=== PATIENT | male | born 1995 | race Two or more races ===

== ENCOUNTER 2023-03-06 07:38 | Day surgery (SDC) | payer MEDICAID, SELFPAY ==
[2023-03-06] VITALS (11 sets, daily range): BP systolic 102–132; BP diastolic 48–91; PULSE 69–89; RESP 16–18; TEMP 36.4–37.1; O2SAT 96–99; BMI 29.0
--- NOTE | ~2023-03-06 | CT_ITS ---
EXAMINATION: CT ABDOMEN AND PELVIS WITH CONTRAST CLINICAL INFORMATION: Right lower quadrant pain. COMPARISON: None available. TECHNIQUE: Multidetector volumetric images were obtained from the superior aspect of the liver through the pubic symphysis following administration 85 mL of Omnipaque 350 intravenous contrast. Sagittal and coronal reformatted images were obtained on the technologist's workstation. Oral contrast: No This CT examination was performed using dose optimization techniques as appropriate, variously including the following: *Automated exposure control *Adjustment of mA and/or kV according to patient size (this includes techniques or standardized protocols for targeted exams where dose is matched to indication/reason for exam; i.e. extremities or head) *Use of iterative reconstruction technique DLP: 596 mGy-cm FINDINGS: LUNG BASES: Normal. No pulmonary consolidation or pleural effusion. LIVER: The liver has normal size, shape, and attenuation. No evidence of liver mass. GALLBLADDER AND BILIARY TREE: Gallbladder is without radiopaque stones, wall thickening or pericholecystic fluid. No dilated bile ducts. PANCREAS: Normal. No edema, pancreatic ductal dilatation or mass. SPLEEN: Normal. ADRENAL GLANDS: Normal. KIDNEYS AND URETERS: Kidneys are normal in size and enhance symmetrically. No renal mass. There is excretion of iodinated contrast into the nondilated collecting systems. No renal stones are convincingly seen, although small stones could be obscured by the excreted contrast. It is difficult to exclude a 0.3 cm calyceal stone of the posterior upper pole of the left kidney. BLADDER: Normal. No calculi or wall thickening. BOWEL AND PERITONEUM: No dilated bowel loops. Small and large bowel are unremarkable. The appendix is abnormal. It measures up to 8-9 mm diameter, has thickened wall, and mild periappendiceal fat stranding is present. Findings are consistent with acute appendicitis. No evidence of appendiceal rupture. No abscess. ABDOMINAL WALL: Unremarkable. VASCULATURE: Normal. LYMPH NODES: No pathologic sized lymph nodes in the abdomen or pelvis. No inguinal lymphadenopathy. PELVIC VISCERA: Prostate gland is normal. No pelvic mass or pelvic free fluid. MUSCULOSKELETAL: Unremarkable. CT/CT abdomen pelvis w IV con IMPRESSION: There is acute appendicitis. No appendiceal rupture. No abscess. The critical test result was discussed with Diana Stein at 10:27 am on 03/06/2023 and it was ascertained that the content and the importance of the findings was understood at the time of the direct communication.
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
[2023-03-06 08:27] LABS: MANUAL DIFF FLAG NO
[2023-03-06 08:34] LABS: Basophils Absolute Auto 0.1 X10*3/uL (0.0-0.2); Basophils Percent Auto 0.6 % (0-2); Eosinophils Absolute Auto 0.1 X10*3/uL (0.0-0.4); Eosinophils Percent Auto 0.9 % (0-4); Hematocrit 49.4 % (42.0-52.0); Hemoglobin 16.3 g/dl (14.0-18.0); Imm Gran Abs Auto 0.04 X10*3/uL (0.00-0.03); Imm Gran Pct Auto 0.3 % (0.0-0.4); Lymphocytes Absolute Auto 1.4 X10*3/uL (1.2-4.9); Lymphocytes Percent Auto 11.6 % (20-40); Mean Corpuscular Hemoglobin 29.4 pg (27.0-33.0); Mean Platelet Volume 8.8 fL (9.4-12.4); Monocytes Absolute Auto 0.8 X10*3/uL (0.1-1.2); Monocytes Percent Auto 6.5 % (2-11); Neutrophils Absolute Auto 9.3 x10*3/uL (2.0-8.3); Neutrophils Percent Auto 80.1 % (45-73); Platelet Count 261 X10*3/uL (160-400); Red Blood Count 5.55 X10*6/uL (4.60-5.80); Red Cell Distribution Width 13.5 % (11.0-16.0); White Blood Count 11.6 X10*3/uL (4.8-10.8)
[2023-03-06 08:53] LABS: Alanine Aminotransferase 26 U/L (0-40); Albumin Level 4.4 g/dL (3.5-5.0); Alkaline Phosphatase 47 U/L (39-117); Anion Gap 10 (12-20); Aspartate Amino Transferase 19 U/L (5-37); Bilirubin Direct 0.3 mg/dL (0.0-0.5); Bilirubin Total 1.3 mg/dL (0.0-1.0); Blood Urea Nitrogen 10 mg/dL (9-16); Calcium 9.5 mg/dL (8.4-10.2); Carbon Dioxide 28 mmol/L (22-29); Chloride 105 mmol/L (96-108); Creatinine Clr Calc Pharmacy 126.8; Estimated Glomerular Filt Rate > 60; Glucose Random 88 mg/dL (60-115); Magnesium 2.1 mg/dL (1.6-2.6); Potassium 4.3 mmol/L (3.3-5.1); Sodium 139 mmol/L (135-145); Total Protein 7.4 g/dL (6.5-8.0)
[2023-03-06 09:13] LABS: Appearance Urine Clear; Color Urine Yellow; Glucose Urine UA Negative (Negative); Leukocyte Esterase Urine Negative (Negative); Nitrite Urine Negative (Negative); PH 6.5 (5.0-9.0); Specific Gravity - Urine 1.025 (1.005-1.025); Urine Blood Negative (Negative); Urine Ketones Negative (Negative); Urine Protein Negative (Neg-Trace)
[2023-03-06] MEDS: ondansetron HCL 4 MG/2 ML VIAL IVPUSH (09:23)
[2023-03-06] MEDS: Morphine Sulfate 4 MG/ML CARTRIDGE IVPUSH (09:23)
[2023-03-06] MEDS: 0.9 % Sodium Chloride 1,000 ML 999 ML IVCONT (09:23)
[2023-03-06] MEDS: iohexoL 350 MG/ML 100 ML INFUS..BTL IV (09:28)
--- NOTE | 2023-03-06 10:31 | PC.NURSE ---
pt seen by surgeon, dr. zepeda. pt aware of plan of care for surgery later today or tomorrow.
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
--- NOTE | 2023-03-06 10:51 | PHA.MEDREC ---
Pharmacy Consult ? Medication Reconciliation Pharmacy has completed the medication reconciliation. Spoke to patient.
--- NOTE | 2023-03-06 12:02 | W.PM.OPN ---
Operative Note Operative Note Date of Service: 03/06/23 Narrative: Preop diagnosis: [Acute appendicitis] Postop diagnosis: [same] Procedure: [Laparoscopic appendectomy] Surgeon: Eric Gottlieb MD Assist: [Tiffany Woodson PA-C] Anesthesia: [GET, Marcaine, 0.5% with epi] Estimated blood loss: [3cc] Specimen: [Acutely inflamed appendix] Intraoperative findings: [Non-perforated, dilated mid to distal appendix; normal proximal appendix to cecal base consistent with appendicitis grossly. No obvious suppuration, grossly.] Indications: [The patient is a 27-year-old gentleman who denies significant past medical history. He reports that after dinner last night, he started feeling often had vague abdominal complaints that eventually localized. He presented to the emergency room with right lower quadrant tenderness and a leukocytosis and a CT that confirmed acute appendicitis. Options including medical management versus operative resection, specifically a laparoscopic appendectomy, possibly open was reviewed. The postoperative restrictions were also reviewed with the patient, and at his request, his significant other, Yara. The inherent risks of bleeding, infection, conversion to open surgery, the possibility of encountering unexpected pathology that could change the operative plan acutely or in the future, and the risks of bleeding or infectious complications that could require another procedure were discussed and the patient's questions were answered. He declined interpretive services and apparently understood his options and wanted to proceed with surgery. The patient requested permission to contact his aeronautical engineering officer to have his left ankle bracelet removed.] Procedure: [The patient was identified in the preoperative holding area and again in the operating room. An appropriate time-out was performed. The patient had voided bladder conference center manager, received subcu heparin and antibiotics per protocol. Sequential compression stockings were placed. The patient was induced in general endotracheal anesthesia administered with excellent effect. The abdomen was widely prepped and draped in the usual manner for surgery. Preemptive local was used at all trocar insertion sites. The abdomen was accessed using a Veress needle. A transverse supraumbilical incision was made, the Veress needle inserted without incident, an appropriate drop test performed and a pneumoperitoneum of 15 mmHg was obtained using carbon dioxide. Next, the Veress needle was withdrawn and the abdomen was accessed through the incision with a 30 degree/5 mm laparoscoped over Optiview trocar technique without incident. In examining the bowel & mesentary deep to the Veress needle, no evidence of injury was present. The remaining trocars were placed under direct laparoscopic vision with preemptive analgesia. The patient was then positioned in Trendelenburg, banked left. The appendix was identified and tracked down to the cecum. A window was made in the mesoappendix and the mesoappendix carefully dissected using the 5 mm LigaSure [place] tip. An Endo-ALEXIS stapler, 30mm purple load, was placed across the appendiceal base on the cecum the and fired with good hemostasis and closure. The specimen was placed in an Endo-Catch bag and delivered through the 12 mm port in the left lower quadrant. Operative field was irrigated and inspected for hemostasis which was good. Patient was returned to neutral position, the abdomen deflated and the trocars removed. 12 mm fascia was closed with 0- Polysorb and skin closed with 4-0 Monocryl subcuticular sutures. The abdomen was washed and dried, Mastisol and Steri-Strips applied followed by Band-Aids. Patient tolerated the procedure well and was sent to PACU in stable condition. All sponge instrument counts were correct x2. Plan for discharge home. ]
[2023-03-06] MEDS: Piperacillin Sodium/Tazobactam 3.375 GM in 0.9 % Sodium Chloride 50 ML IV (12:22)
[2023-03-06] MEDS: HYDROmorphone HCl 0.5 MG/0.5 ML SYRINGE 0.25 MG IVPUSH (12:22)
[2023-03-06] MEDS: Lactated Ringers 1,000 ML 100 ML IVCONT (12:23)
--- NOTE | 2023-03-06 12:53 | HO.ANESPROP2 ---
Documented by User: Aaliyah Rogers MD 03/06/23 13:32 [facility] Family History Family history of problems with anesthesia: No Surgical History Surgical History (Updated 03/06/23 @ 13:17 by Elsa Rodgers) No pertinent past surgical history History of Problems with Anesthesia: No Social History Social History Alcohol intake: never Smoked in Last 30 Days: No Use of substances other than those prescribed or required for medical reasons: No Advance Directives: No Advance Directives Information Provided: No Meds Allergies Allergy/AdvReac Type Severity Reaction Status Date / Time No Known Allergies Allergy Verified 03/06/23 13:18 Home Medications Medication Instructions Recorded Confirmed Last Taken Type No Known Home Meds 03/06/23 03/06/23 Unknown History Exam Airway Mallampati Class: II (permanent top bridge in front) TM Dist: >3cm Neck ROM: Full Heart: rrr Lungs: cta Assessment and Plan Assessment Anesthesia Assessment: Anesthesia Plan Discussed and Chart Reviewed Final Anesthetic Review Family History of Problems with Anesthesia: No History of Problems with Anesthesia: No NPO: Yes ASA Class: I Final Preanesthetic Review: No Changes in Pt Med Stat, Meds/Allgs Chart Reviewed and Consent Obtained/Reviewed Patient Risk: Intermediate Procedure Risk: Intermediate Anesthetic Plan Anesthetic Plan: GA Disposition: Standard PACU Documented by User: Elsa Millard MD [facility] Active Problems Active Problems: All Active Problems (Updated 03/06/23 @ 10:46 by CHAU Mcfarland) Acute appendicitis (Acute) Surgical History Surgical History (Updated 03/06/23 @ 13:17 by Elsa Rodgers) No pertinent past surgical history Social History Social History Alcohol intake: never Smoked in Last 30 Days: No Use of substances other than those prescribed or required for medical reasons: No Advance Directives: No Advance Directives Information Provided: No Meds Allergies Allergy/AdvReac Type Severity Reaction Status Date / Time No Known Allergies Allergy Verified 03/06/23 13:18 Active Medications: Current Medications Docusate Sodium (Docusate Sodium 100 Mg Capsule) 200 mg PO BID LOUIE Hydromorphone HCl (Hydromorphone Hcl 0.5 Mg/0.5 Ml Syringe) 0.25 mg IVPUSH Q2H PRN; Protocol PRN Reason: Pain, Moderate(Pain Scale 4-6) Last Admin: 03/06/23 12:22 Dose: 0.25 mg Lactated Ringer's (Lr) 1,000 mls @ 100 mls/hr IVCONT .Q10H LOUIE Last Admin: 03/06/23 12:23 Dose: 100 mls/hr Ibuprofen (Ibuprofen 400 Mg Tablet) 400 mg PO Q6H PRN PRN Reason: Pain, Mild (Pain Scale 1-3) Ondansetron HCl (Ondansetron Hcl 4 Mg/2 Ml Vial) 4 mg IVPUSH Q6H PRN PRN Reason: Nausea and Vomiting Pharmacy Consult (Consult Rx Perform Med Rec) 1 each MISCELLANE ONCE PRN PRN Reason: Consult order Home Medications Medication Instructions Recorded Confirmed Last Taken Type No Known Home Meds 03/06/23 03/06/23 Unknown History Exam Exam Date and Time: March 06, 2023 1253 Height,Weight and Vital Signs: Height 5 ft 7 in Weight 83.915 kg Last Vital Signs Temp 97.6 F 03/06/23 12:03 Pulse 77 03/06/23 12:03 Resp 16 03/06/23 12:03 BP 118/60 03/06/23 12:03 Pulse Ox 98 03/06/23 12:03 O2 Del Method Room Air 03/06/23 12:03 Pertinent Lab Results Pertinent Lab Results: Laboratory Tests 03/06/23 03/06/23 03/06/23 08:23 08:23 09:06 WBC 11.6 H RBC 5.55 Hgb 16.3 Hct 49.4 MCV 89.0 MCH 29.4 MCHC 33.0 RDW 13.5 Plt Count 261 MPV 8.8 L Immature Gran % (Auto) 0.3 Neut % (Auto) 80.1 H Lymph % (Auto) 11.6 L [place] % (Auto) 6.5 Eos % (Auto) 0.9 Baso % (Auto) 0.6 Lymph # (Auto) 1.4 [place] # (Auto) 0.8 Eos # (Auto) 0.1 Baso # (Auto) 0.1 Abs Immat Gran (auto) 0.04 H Absolute Neuts (auto) 9.3 H Absolute Nucleated RBC 0.000 Nucleated RBC % (auto) 0.0 Sodium 139 Potassium 4.3 Chloride 105 Carbon Dioxide 28 Anion Gap 10 L BUN 10 Creatinine 0.89 Estim Creat Clear Calc 126.8 Estimated GFR > 60 Random Glucose 88 Calcium 9.5 Magnesium 2.1 Total Bilirubin 1.3 H Direct Bilirubin 0.3 AST 19 ALT 26 Alkaline Phosphatase 47 Total Protein 7.4 Albumin 4.4 Urine Color Yellow Urine Appearance Clear Urine pH 6.5 Ur Specific [place] 1.025 Urine Protein Negative Urine Glucose (UA) Negative Urine Ketones Negative Urine Blood Negative Urine Nitrite Negative Ur Leukocyte Esterase Negative
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
--- NOTE | 2023-03-06 15:30 | PM.DS ---
DS: Providers Provider Date of Service: 03/06/23 Primary care physician: Unknown Physician Consults: 03/06/23 10:43 Consult to General Surgery Stat Consulting Provider: [facility] General Surgeons Reason for consultation: appendicitis DS: Diagnosis Discharge Diagnosis (1) Acute appendicitis: Status: Acute DS: Summary Hospital Course Hospital Course: See H&P for full details. Briefly, this 27-year-old gentleman presented with right lower quadrant pain, leukocytosis and a CT that confirmed appendicitis. He underwent an uneventful laparoscopic appendectomy and was discharged home in improved condition. Time Spent with Patient Time attestation: Total time managing care of this patient today ____ minutes. Discharge coordination time: Less than 30 minutes Quality: Safe Use of Opioids Does Pt have an Active Cancer Diagnosis on the Problem List?: No Quality: Stroke Does the patient have a stroke diagnosis?: No Physical Exam Vital Signs: Vital Signs: Last Vital Signs Temp 98.3 F 03/06/23 13:18 Pulse 77 03/06/23 13:18 Resp 16 03/06/23 13:18 BP 129/76 03/06/23 13:18 Pulse Ox 97 03/06/23 13:18 O2 Del Method Room Air 03/06/23 13:18 BMI result Body Mass Index 29.0 DS: Data Data Completed and Pending Pending studies at discharge: Pending at discharge 03/06/23 14:46 Surgical [PTH] Routine Labs on day of discharge: Laboratory Results - last 24 hr 03/06/23 03/06/23 03/06/23 08:23 08:23 09:06 WBC 11.6 H RBC 5.55 Hgb 16.3 Hct 49.4 MCV 89.0 MCH 29.4 MCHC 33.0 RDW 13.5 Plt Count 261 MPV 8.8 L Immature Gran % (Auto) 0.3 Neut % (Auto) 80.1 H Lymph % (Auto) 11.6 L Schley % (Auto) 6.5 Eos % (Auto) 0.9 Baso % (Auto) 0.6 Lymph # (Auto) 1.4 Schley # (Auto) 0.8 Eos # (Auto) 0.1 Baso # (Auto) 0.1 Abs Immat Gran (auto) 0.04 H Absolute Neuts (auto) 9.3 H Absolute Nucleated RBC 0.000 Nucleated RBC % (auto) 0.0 Sodium 139 Potassium 4.3 Chloride 105 Carbon Dioxide 28 Anion Gap 10 L BUN 10 Creatinine 0.89 Estim Creat Clear Calc 126.8 Estimated GFR > 60 Random Glucose 88 Calcium 9.5 Magnesium 2.1 Total Bilirubin 1.3 H Direct Bilirubin 0.3 AST 19 ALT 26 Alkaline Phosphatase 47 Total Protein 7.4 Albumin 4.4 Urine Color Yellow Urine Appearance Clear Urine pH 6.5 Ur Specific [place] 1.025 Urine Protein Negative Urine Glucose (UA) Negative Urine Ketones Negative Urine Blood Negative Urine Nitrite Negative Ur Leukocyte Esterase Negative Discharge Plan Discharge Clinical Impression: Acute appendicitis Patient Disposition: Admitted As Inpatient Additional Instructions: You had a laparoscopic appendectomy performed by Dr. Gottlieb. It is normal to feel some minor abdominal discomfort due to the gas from the operation, however if you develop severe pain in your abdomen or chest, fevers over 100F, vomiting and are unable to keep liquids down, you should contact Dr. Gottlieb or report to the nearest emergency department. If your incisions become red, swollen and tender, draining pus or have problems, please contact Dr. Gottlieb report to the nearest emergency department. If you have bandages on your incisions, leave them in place for 48 hours, then remove them. You can shower but not soak in a tub after removing the bandages. If there are paper tapes known as butterflies/Steri-Strips, leave them fall off on their own in 1-2 weeks. You do not need to put another bandage on your incisions unless your clothing rubs and irritates your incisions. You can shower after you removed your bandages in 48 hours, but do not soak in a tub, go in a pool, or go swimming in a [place]na[place] pond or ocean. Please let the paper tapes to dry after getting them wet. You do not need to replace a bandage on lesser clothing irritates the incision. You may find that pants with an elastic waist like gym cloths or suspenders are more comfortable than pants requiring a belt until your incisions completely heal. Because of the operation, you should not lift more than 20 lb for the next 4 weeks. Any strenuous activity such as lifting more than 20 lb, digging, yoga, any athletic activity, like running, soccer, or other strenuous activity, lifting heavy bags/groceries, swimming, martial arts, or other strenuous athletic activities can cause hernias. If you have any questions regarding a specific activity, please ask Dr. Gottlieb. Avoiding strenuous activities will minimize the risk of incisional hernias. At your 1 week post-op office visit, Dr. Gottlieb will discuss returning to work on light duty with you. Since you can perform light duty, you are not disabled, but your employer may not allow you to return until you have no restrictions; it is up to you to discuss this issue, as we cannot disclose personal information. Please bring any paperwork to that follow-up appointment from your employer. Please note that you are not disabled and need to discuss your work restrictions for medical reasons with your employer. If you do not have a follow-up post-op visit, call [phone] to schedule one, or call with questions. If you were prescribed an antibiotic, continue taking the medication as prescribed. The anesthesia from the operation and pain medicine will cause constipation. You can purchase cmwe-[id number] stool softener known as Colace/docusate, 100 mg and take 2 tablets in the morning with breakfast and 2 tablets in the evening after dinner to minimize this problem. Even if you are not taking narcotics, the anesthesia can cause constipation. Unless you have a medical reason, you should take [id number] Tylenol/acetaminophen, 2 tablets with mcve-fpo-clhzyey ibuprofen, 2 tablets, every 6 hours to help with pain. Add the narcotic pain medicine if you are still having pain. Ice packs are also allowed to minimize pain and swelling. You should eat a high-protein, high-fiber, low-fat diet to optimize healing. Please resume any preoperative medications unless otherwise directed by Dr. Gottlieb. Please contact your primary care provider for a follow-up appointment in 2 weeks. Interventions: Admission Worksheet (ED) Last Done: 03/06/23 13:18 Discharge Date/Time: 03/06/23 15:23
== END 2023-03-06 11:45 | disposition home or self-care (01) ==
LOC: HO.ED 13:37 → HO.SSS 15:47
PROVIDERS: Physician Assistant; Emergency Provider Emergency Medicine; Visit Provider Surgery
PROC: 0DTJ4ZZ Resection of Appendix, Percutaneous Endoscopic Approach (ICD-10-PCS; CPT 44970; principal; 2023-03-06 14:10)
DX: K35.80 Unspecified acute appendicitis (principal); D72.829 Elevated white blood cell count, unspecified; Z98.890 Other specified postprocedural states; Z87.891 Personal history of nicotine dependence
CPT/HCPCS: 44970; 36415; 74177; 80048; 80076; 81003; 83735; 85025; 88304; 96361; 96365; 96375; 99285; J0330; J1100; J1170; J1885; J2250; J2270; J2405; J2543; J3010; Q9967

== ENCOUNTER 2023-03-29 10:04 | Emergency (ER) | payer MEDICAID, SELFPAY ==
[2023-03-29 10:07] VITALS: BP 131/83; PULSE 95; RESP 18; TEMP 36.8; O2SAT 95; BMI 28.2
--- NOTE | 2023-03-29 11:47 | ED_ITS ---
HPI - General Adult General Chief complaint: General Medical Stated complaint: infection Time Seen by Provider: 03/29/23 11:21 History of Present Illness HPI narrative: patient is 2 weeks post appendectomy done here in [place], he complains for several days he has had some drainage and some wound dehiscence at 1 of th surgial laparoscopy incisions He denies any fever or chills he denies any nausea or vomiting no difficulty eating no other abdominal pain Related Data Previous Rx's Medication Instructions Recorded cephalexin 500 mg tablet 500 mg PO QID 7 days #28 tabs 03/29/23 Allergies Allergy/AdvReac Type Severity Reaction Status Date / Time No Known Allergies Allergy Verified 03/06/23 13:18 [facility], [facility] Past Medical History Source: nursing notes reviewed Surgical History (Updated 03/06/23 @ 13:49 by Elsa Rodgers) History of neck surgery No pertinent past surgical history Social History Social History Alcohol intake: never Patient Tobacco Use Status: Former Tobacco user Tobacco use type: Cigarette Advance Directives: No Advance Directives Information Provided: Yes Physical Exam ED Vital Signs: Vital Signs - 24 hr 03/29/23 10:07 Temperature 98.3 F Pulse Rate 95 Respiratory Rate 18 Blood Pressure 131/83 Pulse Oximetry 95 Oxygen Delivery Method Room Air BMI result Body Mass Index 28.2 general appearance is no acute distress Neck is supple Respiratory no distress Abdomen on the left side of the abdomen there is a 2 cm incision site with mild dehiscence and an internal suture is protruding there is no fluctuance there is some scant watery discharge, there is no surrounding erythema No other abdominal tenderness except locally around this incision site Extremities full range of motion x4 Skin no other rash Course Course Course Narrative: case was discussed via text with surgery on-call Dr. cherry he advised this is likely local irritation from the suture and to remove the suture and follow w this week in the office I did start Keflex , the protruding suture was removed He will follow in the office next week and is advised to return if redness pain or swelling increase or if he develops any fever Medications Administered Discontinued Medications Generic Name Dose Route Start Last Admin Trade Name Freq PRN Reason Stop Dose Admin Cephalexin HCl 500 mg 03/29/23 12:06 03/29/23 12:17 Cephalexin 500 Mg Capsule PO 03/29/23 12:07 500 mg ONCE ONE Administration Discharge Plan Discharge Clinical Impression: Cellulitis Patient Disposition: Home, Self-Care Additional Instructions: I spoke with surgery Who advised this is likely an irritation or mild infection at the suture site I did remove the suture and started Keflex antibiotic Call the surgeon's office tomorrow to be seen early next week Return to the emergency room any time if you develop worse pain and swelling, spreading redness, increased discharge fever nausea vomiting, any worse condition or any concerns Prescriptions: New cephalexin 500 mg tablet 500 mg PO QID 7 Days Qty: 28 0RF Referrals: Eric Gottlieb MD [Physician] - ( stitch infection post appendectomy)
[2023-03-29] MEDS: cephALEXin 500 MG CAPSULE PO (12:17)
== END 2023-03-29 12:49 | disposition home or self-care (01) ==
PROVIDERS: Emergency Provider Emergency Medicine
DX: L03.311 Cellulitis of abdominal wall (principal); Z87.891 Personal history of nicotine dependence; Z48.02 Encounter for removal of sutures; Z79.899 Other long term (current) drug therapy
CPT/HCPCS: 87070; 87077; 87186; 87205; 99283